=== PATIENT | male | born 1985 | race Hispanic/Latino ===

== ENCOUNTER 2018-06-28 08:42 | Outpatient (CLI) | payer BC | END 2018-06-28 08:43 | disposition home or self-care (01) | LOC: LAB 08:42 | PROVIDERS: ATTEND Family Medicine | DX: Z00.00 Encounter for general adult medical examination without abnormal findings (principal) ==

== ENCOUNTER 2018-07-20 10:45 | Outpatient (CLI) | payer BC ==
--- NOTE | 2018-07-20 13:18 | RAD ---
LUMBAR SPINE MULTIPLE VIEWS: FINDINGS: No fracture, subluxation, bony destruction, spondylolysis, or spondylolisthesis is seen. No chain al ignment is noted on flexion or extension. IMPRESSION: Unremarkable examination. POS: [facility]
== END 2018-07-20 10:46 | disposition home or self-care (01) ==
LOC: SCSRAD 10:45
PROVIDERS: ATTEND Family Medicine
DX: M54.42 Lumbago with sciatica, left side (principal)
CPT/HCPCS: 72100

== ENCOUNTER 2018-08-31 15:41 | Outpatient (CLI) | payer BC ==
--- NOTE | 2018-08-31 17:16 | MRI ---
MRI LUMBAR SPINE WITHOUT CONTRAST: Date: 08/31/18 COMPARISON: None. HISTORY: Back pain for a month. TECHNIQUE: Multiplanar, multisequence MR images were obtained of the lumbar spine without contrast. FINDINGS: There is disc desiccation at L3-4 and L4-5 intervertebral discs. The vertebral bodies and interverteb ral discs demonstrate normal height and alignment without fracture or subluxation. The conus medullaris terminates normally at L1. The prevertebral and paraspinal soft tissues are unre markable. T12-L1: Unremarkable. L1-2: Unremarkable. L2-3: Unremarkable. L3-4: A small generalized concentric disc bulge is seen. Mild bilateral posterior facet arthrosis. N o central canal stenosis. No neural foraminal stenosis. L4-5: A small disc osteophyte complex is seen. In the left subarticular region, there is a small reg ion demonstrating high T1 and T2 signal. This measures approximately 6.0 mm in size and abuts the exi ting left nerve root. This could represent a small acute disc fragment or a small amount of hematoma in this location. Mild central canal stenosis. Mild bilateral posterior facet arthrosis. No neural fo raminal stenosis. L5-S1: A small disc osteophyte complex is seen. No posterior facet arthrosis. Mild central canal drake nosis. No neural foraminal stenosis. IMPRESSION: Degenerative changes of the lumbar spine as above. POS: [facility]I
== END 2018-08-31 15:42 | disposition home or self-care (01) ==
LOC: TBSIIMAG 15:41
PROVIDERS: ATTEND Family Medicine
DX: M54.42 Lumbago with sciatica, left side (principal); M47.816 Spondylosis without myelopathy or radiculopathy, lumbar region
CPT/HCPCS: 72148